=== PATIENT | female | born 1965 | race Caucasian/White ===

== ENCOUNTER 2019-06-13 07:35 | Inpatient (IN) | payer OTHER ==
[2019-06-09 14:41] VITALS: BMI 35.1
[2019-06-13] MEDS ORDERED: THROMBIN (BOVINE) 5,000 UNIT VIAL TP ONE ×3 (09:48→11:37)
[2019-06-13] MEDS ORDERED: BENZOIN/ALOE VERA/STORAX/TOLU 58 ML BOTTLE ONE (09:48)
[2019-06-13] MEDS ORDERED: HEPARIN NA (PORCINE) 5,000 UNITS/ML 1ML VIAL ONE (09:48)
[2019-06-13] MEDS ORDERED: fentaNYL CITRATE 250 MCG/5 ML VIAL ONE (09:59)
[2019-06-13] MEDS ORDERED: PROPOFOL 20 ML ONE ×20 (09:59→14:32)
[2019-06-13] MEDS ORDERED: MIDAZOLAM HCL 2 MG/2 ML SINGLE DOSE VIAL ONE ×2 (09:59)
[2019-06-13] MEDS ORDERED: BUPIVACAINE LIPOSOME/PF (EXPAREL) 266 MG/20 ML VIAL ONE (10:23)
[2019-06-13] MEDS ORDERED: ceFAZolin SODIUM 1 GM VIAL IVPB ONE ×2 (11:25→14:27)
[2019-06-13] MEDS ORDERED: VANCOMYCIN 1,000 MG VIAL (RESTRICTED TO ID ONLY) IVPB ONE (11:35)
[2019-06-13] MEDS ORDERED: GELATIN, ABSORBABLE 12-7MM EACH SPONGE TP ONE (11:37)
[2019-06-13] MEDS ORDERED: BUPIVACAINE HCL/PF 0.5% (5 MG/ML) 30 ML VIAL IJ ONE ×2 (12:50→14:40)
[2019-06-13] MEDS ORDERED: BUPIVACAINE LIPOSOME/PF (EXPAREL) 266 MG/20 ML VIAL NR ONE ×2 (12:50→14:40)
[2019-06-13] MEDS ORDERED: NEOSTIGMINE METHYLSULFATE 0.5 MG/1 ML - 10 ML MDV ONE (12:51)
--- NOTE | 2019-06-13 15:44 | PN ---
Progress Note (short form) - Note Progress Note: 54F s/p removal of hardware L4-L5, inspection of fusion mass, L3 laminectomy, L3 -L4 PLIF, L3-L5 posterior instrumented spinal fusion POD #0. -Admit to ICU post-op. -Pain control: NO NSAID's; patient received intra-op parspinal muscle block w/ Exparel; OK to use BILL OF MATERIALS CLERK if needed; transition to oral analgesia post-op. -DVT PPx: -Mechanical only: STEVENSON's, SCD's. -Chemical: None. -Incentive spirometry q15 min. -NPO until flatus. -[facility]; d/c when ambulating. -Post-op Ancef x 3 doses. -PT/OT/Rehab, OOB. -WBAT B/L LE. -No bending, lifting (>5 lbs), or twisting for 9-12 months. -Care per ICU & medical hospitalist teams. -Discharge planning: [facility]; call for appointment; . -Will follow. Mo Rangel MD (Orthopaedic Surgery).
[2019-06-13] MEDS ORDERED: DEXAMETHASONE SOD PHOSPHATE 4 MG/1 ML VIAL IVPUSH PRN (15:46)
[2019-06-13] MEDS ORDERED: ONDANSETRON 4 MG/2 ML VIAL IVPUSH PRN ×3 (15:46→15:52)
--- NOTE | 2019-06-13 15:46 | OP ---
Operative Note - Note: Operative Date: 06/13/19 Pre-Operative Diagnosis: 1. L3-L4 spondylolisthesis. 2. Adjacent level disease. 3. Lumbar spondylotic radiculopathy. 4. Spinal stenosis with neurogenic claudication Operation: 1. Removal of hardware L4-L5. 2. Inspection of fusion mass. 3. L3 laminectomy. 4. L3-L4 posterior lumbar interbody fusion (discectomy and arthrodesis). 5. L3-L4 insterior biomechanical device. 6. L3-L5 posterior instrumented spinal fusion. 7. Bone autograft. 8. Bone allograft. 9. Bone marrow aspiration Implants: Screws: 6 x 6.5x35mm. L3-L4 Cage: [id number] Post-Operative Diagnosis: Same as Pre-op Surgeon: Mo Rangel Punch Box Tender: Maximiliano Rangel Anesthesiologist/PRODUCE SPECIALIST: Veronica Vaughan MD Anesthesia: General Specimens Removed: Screws. L3-L4 disc Estimated Blood Loss (mls): 700 Blood Volume Replaced (mls): 250 (Cell Saver) Fluid Volume Replaced (mls): 2,000 (Crystalloid) Operative Report Dictated: Yes
[2019-06-13] MEDS ORDERED: LACTATED RINGERS SOLUTION 1,000 ML IV SCH ×2 (16:00)
[2019-06-13] MEDS ORDERED: HYDROmorphone *PCA* 10MG/50ML DISP.SYRIN PCA SCH (16:00)
[2019-06-13] MEDS ORDERED: diazePAM CARPU-JECT 10 MG/2 ML DISP.SYRIN ONE (16:55)
[2019-06-13] MEDS ORDERED: ACETAMINOPHEN INJECTION 100 ML IVPB ONE (16:55)
[2019-06-13] MEDS ORDERED: HYDROmorphone *PCA* 10MG/50ML DISP.SYRIN ONE (16:55)
[2019-06-13] MEDS: diazePAM CARPU-JECT 10 MG/2 ML DISP.SYRIN IVPUSH PRN (17:00)
[2019-06-13] MEDS: ACETAMINOPHEN 1000 MG/100 ML VIAL (NON FORMULARY) IVPB SCH (17:05)
[2019-06-13] MEDS ORDERED: ceFAZolin SODIUM 1 GM VIAL ONE ×2 (19:34→19:35)
[2019-06-13] MEDS: CEFAZOLIN 2 GM/D5W 2 GM/50 ML ML IVPB SCH (19:45)
[2019-06-13] MEDS ORDERED: ceFAZolin 2 GRAM PREMIX BAG IVPB SCH (20:00)
--- NOTE | 2019-06-13 20:56 | HP ---
CHIEF COMPLAINT: post-op PCP: HISTORY OF PRESENT ILLNESS: 54 y.o. F PMH HTN, asthma presenting post-op day #0 s/p removal L4-L5 hardware, inspection of fusion mass, L3 laminectomy, L3-L4 PLIF, L3-L5 posterior instrumental spinal fusion for L3-L4 spondylolisthesis, lumbar spondylotic radiculopathy & spinal stenosis with neurogenic claudication. Intra-operatively the patient received paraspinal exparel block. EBL 700cc, total 2.25L fluids total (250cc cell saver, 2L crystalloids). Will be admitted to ICU for post op monitoring. Recent Travel: PAST MEDICAL HISTORY: htn, asthma PAST SURGICAL HISTORY: prior spinal surgery L1-L2, hysterectomy, b/l laparoscopic knee surgeries Social History: Smoking: prior history, quit in 2014 Alcohol: socially Drugs: denies Allergies No Known Allergies Allergy (Verified 06/13/19 08:49) HOME MEDICATIONS: Home Medications Medication Instructions Recorded Chlorthalidone 25 mg PO DAILY 06/09/19 Fluticasone Propion/Salmeterol 1 each IH BID 06/09/19 [Wixela 500-50 Inhub] Garlic 1 each PO DAILY 06/13/19 Multivitamin [Poly-Vitamin] 1 each PO DAILY 06/13/19 REVIEW OF SYSTEMS CONSTITUTIONAL: Absent: fever, chills, diaphoresis, generalized weakness, malaise, loss of appetite, weight change HEENT: Absent: rhinorrhea, nasal congestion, throat pain, throat swelling, difficulty swallowing, mouth swelling, ear pain, eye pain, visual changes CARDIOVASCULAR: Absent: chest pain, syncope, palpitations, irregular heart rate, lightheadedness , peripheral edema RESPIRATORY: Absent: cough, shortness of breath, dyspnea with exertion, orthopnea, wheezing, stridor, hemoptysis GASTROINTESTINAL: Absent: abdominal pain, abdominal distension, nausea, vomiting, diarrhea, constipation, melena, hematochezia GENITOURINARY: Absent: dysuria, frequency, urgency, hesitancy, hematuria, flank pain, genital pain MUSCULOSKELETAL: Absent: myalgia, arthralgia, joint swelling, back pain, neck pain SKIN: Absent: rash, itching, pallor HEMATOLOGIC/IMMUNOLOGIC: Absent: easy bleeding, easy bruising, lymphadenopathy, frequent infections ENDOCRINE: Absent: unexplained weight gain, unexplained weight loss, heat intolerance, cold intolerance NEUROLOGIC: Absent: headache, focal weakness or paresthesias, dizziness, unsteady gait, seizure, mental status changes, bladder or bowel incontinence PSYCHIATRIC: Absent: anxiety, depression, suicidal or homicidal ideation, hallucinations. PHYSICAL EXAMINATION Vital Signs - 24 hr 06/13/19 06/13/19 06/13/19 08:35 08:44 08:45 Temperature 97.9 F 97.9 F Pulse Rate 83 83 Respiratory 20 20 Rate Blood Pressure 124/70 124/70 O2 Sat by Pulse 99 Oximetry (%) 06/13/19 06/13/19 06/13/19 16:00 16:15 16:30 Temperature Pulse Rate 89 94 H 104 H Respiratory 20 19 19 Rate Blood Pressure 114/77 133/68 140/81 O2 Sat by Pulse 95 90 L 100 Oximetry (%) 06/13/19 06/13/19 06/13/19 16:45 17:00 17:15 Temperature 25 F L Pulse Rate 103 H 101 H 88 Respiratory 19 16 Rate Blood Pressure 139/82 135/83 146/72 O2 Sat by Pulse 100 100 Oximetry (%) 06/13/19 06/13/19 06/13/19 17:30 17:45 18:00 Temperature Pulse Rate 106 H 104 H 89 Respiratory 21 H 12 12 Rate Blood Pressure 150/92 120/71 129/70 O2 Sat by Pulse 100 100 100 Oximetry (%) 06/13/19 06/13/19 06/13/19 18:15 18:30 18:45 Temperature Pulse Rate 87 88 103 H Respiratory 20 18 16 Rate Blood Pressure 121/69 123/68 106/74 O2 Sat by Pulse 100 100 97 Oximetry (%) 06/13/19 06/13/19 06/13/19 19:00 19:15 19:30 Temperature Pulse Rate 99 H 82 84 Respiratory 17 13 14 Rate Blood Pressure 116/55 L 110/84 104/53 L O2 Sat by Pulse 97 99 100 Oximetry (%) 06/13/19 06/13/19 06/13/19 19:45 20:00 20:21 Temperature 98.4 F 98.4 F Pulse Rate 94 H 95 H Respiratory 14 12 Rate Blood Pressure 93/53 L 99/69 O2 Sat by Pulse 100 100 99 Oximetry (%) 06/13/19 20:24 Temperature 97.8 F Pulse Rate 85 Respiratory 15 Rate Blood Pressure 132/82 O2 Sat by Pulse Oximetry (%) GENERAL: Awake, alert, and fully oriented, in no acute distress. HEENT: NCAT. NC in place. PERRLA. Sclera non-icteric LUNGS: Breath sounds equal, clear to auscultation bilaterally. No wheezes, and no crackles. No accessory muscle use. HEART: Regular rate and rhythm, normal S1 and S2 without murmur, rub or gallop. ABDOMEN: Soft, nontender, not distended, normoactive bowel sounds, no guarding. EXTREMITIES: 2+ pulses, warm, well-perfused. No peripheral edema. NEUROLOGICAL: Cranial nerves II-XII intact. Sensory intact b/l UE & LE. Able to lift b/l LE off bed, able to bend @ b/l knee, wiggles toes b/l. Good handgrip strength. Full ROM UE's. PSYCHIATRIC: Cooperative. Good eye contact. Appropriate mood and affect. SKIN: Warm, dry, normal turgor, no rashes or lesions noted, normal capillary refill. Laboratory Results - last 24 hr 06/13/19 06/13/19 07:51 10:45 Blood Type O POSITIVE O POSITIVE Antibody Screen Negative ASSESSMENT/PLAN: 54 y.o. F PMH HTN, asthma presenting POD #0 s/p removal L4-L5 hardware, inspection of fusion mass, L3 laminectomy, L3-L4 PLIF, L3-L5 posterior instrumental spinal fusion w/ Dr. Rangel. #Pain control -s/p exparel block intra operatively -Dilaudid FILM CUTTER pump -IV tylenol 1g q8h x3 doses -avoid NSAIDs -transition to PO analgesics when able -weight bearing as tolerated b/l LE #HTN -continue home chlorthalidone 25 mg daily -monitor vitals closely #Asthma -incentive spirometer q15min -continue home symbicort -on NC @3L can wean as tolerated, maintain SaO2 >90% #PPX -abx: post- op 3 x doses ancef given, 1g vanc, -DVT: SCDs, avoid chemical AC post-operatively -OOBTC -zofran prn for nausea #FENLTD -received 2.25L total intra-op (250cc cell saver, 2L crystalloids) -LR @125cc/hr -trend lytes replete prn -NPO until passing flatus -perez in place, can d/c Surgical recs: No bending, lifting (>5 lbs), or twisting for 9-12 months. Visit type - Emergency Visit Emergency Visit: Yes ED Registration Date: 06/13/19 Care time: The patient presented to the Emergency Department on the above date and was hospitalized for further evaluation of their emergent condition. - New Patient This patient is new to me today: Yes Date on this admission: 06/14/19 - Critical Care Critical Care patient: No ATTENDING PHYSICIAN STATEMENT I saw and evaluated the patient. I reviewed the resident's note and discussed the case with the resident. I agree with the resident's findings and plan as documented. SUBJECTIVE: OBJECTIVE: ASSESSMENT AND PLAN:
[2019-06-13] MEDS: BUDESONIDE/FORMETEROL FUMARATE 160/4.5 mcg INHALER IH SCH (21:49)
[2019-06-13] MEDS ORDERED: PATIENT'S OWN MEDICATION (NON-FORMULARY) (Fluticasone Propion/Salmeterol [Wixela 500-50 In IH SCH (22:00)
--- NOTE | 2019-06-13 22:10 | CONSULT ---
Consultation: REQUESTING PROVIDER: Dr. Rangel CONSULT REQUEST: We have been asked to medically evaluate this patient for Post op care in the ICU. HISTORY OF PRESENT ILLNESS: 54 yo f w/ PMH HTN, asthma who is POD #0 removal L4-L5 hardware, inspection of fusion mass, L3 laminectomy, L3-L4 PLIF, L3-L5 posterior instrumental spinal fusion for L3-L4 spondylolisthesis with Dr. Rangel. Patient was admitted to ICU for post op monitoring. On interview, the patient is well appearing and comfortable, states her pain in 810. HAT COPYIST in place. No other complaints. REVIEW OF SYSTEMS: CONSTITUTIONAL: Absent: fever, chills, diaphoresis, generalized weakness, malaise, loss of appetite, weight change HEENT: Absent: rhinorrhea, nasal congestion, throat pain, throat swelling, difficulty swallowing, mouth swelling, ear pain, eye pain, visual changes CARDIOVASCULAR: Absent: chest pain, syncope, palpitations, irregular heart rate, lightheadedness , peripheral edema RESPIRATORY: Absent: cough, shortness of breath, dyspnea with exertion, orthopnea, wheezing, stridor, hemoptysis GASTROINTESTINAL: Absent: abdominal pain, abdominal distension, nausea, vomiting, diarrhea, constipation, melena, hematochezia GENITOURINARY: Absent: dysuria, frequency, urgency, hesitancy, hematuria, flank pain, genital pain MUSCULOSKELETAL: Absent: myalgia, arthralgia, joint swelling SKIN: Absent: rash, itching, pallor HEMATOLOGIC/IMMUNOLOGIC: Absent: easy bleeding, easy bruising, lymphadenopathy, frequent infections ENDOCRINE: Absent: unexplained weight gain, unexplained weight loss, heat intolerance, cold intolerance NEUROLOGIC: Absent: headache, focal weakness or paresthesias, dizziness, unsteady gait, seizure, mental status changes, bladder or bowel incontinence PSYCHIATRIC: Absent: anxiety, depression, suicidal or homicidal ideation, hallucinations. PHYSICAL EXAMINATION Vital Signs - 24 hr 06/13/19 06/13/19 06/13/19 08:35 08:44 08:45 Temperature 97.9 F 97.9 F Pulse Rate 83 83 Respiratory 20 20 Rate Blood Pressure 124/70 124/70 O2 Sat by Pulse 99 Oximetry (%) 06/13/19 06/13/19 06/13/19 15:48 16:00 16:15 Temperature 97.4 F L Pulse Rate 90 89 94 H Respiratory 21 H 20 19 Rate Blood Pressure 110/73 114/77 133/68 O2 Sat by Pulse 94 L 95 90 L Oximetry (%) 06/13/19 06/13/19 06/13/19 16:30 16:45 17:00 Temperature 25 F L Pulse Rate 104 H 103 H 101 H Respiratory 19 19 Rate Blood Pressure 140/81 139/82 135/83 O2 Sat by Pulse 100 100 Oximetry (%) 06/13/19 06/13/19 06/13/19 17:15 17:30 17:45 Temperature Pulse Rate 88 106 H 104 H Respiratory 16 21 H 12 Rate Blood Pressure 146/72 150/92 120/71 O2 Sat by Pulse 100 100 100 Oximetry (%) 06/13/19 06/13/19 06/13/19 18:00 18:15 18:30 Temperature Pulse Rate 89 87 88 Respiratory 12 20 18 Rate Blood Pressure 129/70 121/69 123/68 O2 Sat by Pulse 100 100 100 Oximetry (%) 06/13/19 06/13/19 06/13/19 18:45 19:00 19:15 Temperature Pulse Rate 103 H 99 H 82 Respiratory 16 17 13 Rate Blood Pressure 106/74 116/55 L 110/84 O2 Sat by Pulse 97 97 99 Oximetry (%) 06/13/19 06/13/19 06/13/19 19:30 19:45 20:00 Temperature 98.4 F 98.4 F Pulse Rate 84 94 H 95 H Respiratory 14 14 12 Rate Blood Pressure 104/53 L 93/53 L 99/69 O2 Sat by Pulse 100 100 100 Oximetry (%) 06/13/19 06/13/19 20:21 20:24 Temperature 97.8 F Pulse Rate 85 Respiratory 15 Rate Blood Pressure 132/82 O2 Sat by Pulse 99 Oximetry (%) GENERAL: Drowsy, easily rousable to voice. able to follow commands. HEAD: Normal with no signs of trauma. LUNGS: Breath sounds equal, clear to auscultation bilaterally. No wheezes, and no crackles. No accessory muscle use. HEART: Regular rate and rhythm, normal S1 and S2 without murmur, rub or gallop. ABDOMEN: Soft, nontender, not distended, normoactive bowel sounds, no guarding, no rebound, no masses. No hepatomegaly or splenomegaly. LOWER EXTREMITIES: 2+ pulses, warm, well-perfused. No calf tenderness. No peripheral edema. NEUROLOGICAL: Cranial nerves II-X intact. moving all 4 limbs spontaneously SKIN: Warm, dry, normal turgor, no rashes or lesions noted. Laboratory Results - last 24 hr 06/13/19 06/13/19 07:51 10:45 Blood Type O POSITIVE O POSITIVE Antibody Screen Negative Active Medications Generic Name Dose Route Start Last Admin Trade Name Freq PRN Reason Stop Dose Admin Acetaminophen 1,000 mg 06/13/19 16:00 06/13/19 17:05 Ofirmev Injection - IVPB 06/14/19 08:01 1,000 mg Q8H AMANDO Administration Budesonide/Formoterol Fumarate 2 puff 06/13/19 22:00 06/13/19 21:49 Symbicort 160/4.5mcg - IH 2 puff BID AMANDO Administration Chlorthalidone 25 mg 06/14/19 10:00 Hygroton - PO DAILY AMANDO Dexamethasone Sodium Phosphate 4 mg 06/13/19 15:46 Decadron Injection - IVPUSH ONCE PRN NAUSEA AND/OR VOMITING Diazepam 5 mg 06/13/19 15:52 06/13/19 17:00 Valium Injection - IVPUSH 5 mg Q8H PRN Administration BACK PAIN Diphenhydramine HCl 12.5 mg 06/13/19 15:46 Benadryl Injection - IVPUSH ONCE PRN FOR ITCHING Fentanyl 50 mcg 06/13/19 15:46 Sublimaze Injection - IVPUSH [id number] PRN PAIN-PACU ORDER X 4 DOSES ONLY Hydromorphone HCl 10 mg 06/13/19 16:00 06/13/19 17:37 Hydromorphone 10 Mg/50 Ml-Ns HAT COPYIST 06/14/19 15:59 10 mg HAT COPYIST AMANDO Administration Protocol Lactated Ringer's 1,000 mls @ 125 mls/hr 06/13/19 16:00 06/13/19 17:37 Lactated Ringers Solution IV 315 mls ASDIR AMANDO Administration Cefazolin Sodium/Dextrose 2 gm in 50 mls @ 100 mls/hr 06/13/19 20:00 19:45 Ancef 2 Gm Premixed Ivpb - IVPB 06/14/19 08:29 50 mls Q6H AMANDO Administration Ondansetron HCl 4 mg 06/13/19 15:52 Zofran Injection IVPUSH Q6H PRN NAUSEA AND/OR VOMITING ASSESSMENT/PLAN: 54 yo f w/ PMH HTN, asthma who is POD #0 removal L4-L5 hardware, inspection of fusion mass, L3 laminectomy, L3-L4 PLIF, L3-L5 posterior instrumental spinal fusion for L3-L4 spondylolisthesis with Dr. Rangel. Patient was admitted to ICU for post op monitoring. #Neuro -drowsy but easily rousable to voice. likely 2/2 dilaudid HAT COPYIST -moving all 4 limbs spontaneously -pain Ctrl w/ intra op paraspinal block, HAT COPYIST per anaesthesia. -NO NSAIDS per Dr. Rangel -OOB, PT #Urinary -d/c perez once OOB/ambulating #ID -post op ancef x3 doses #GI -NPO until flatus #Prophy -mechanical DVT prophy w/ SCDs per Dr. Rangel Dispo: We will continue to follow the patient. Thank you for this consultative opportunity. Visit type - Emergency Visit Emergency Visit: No - New Patient This patient is new to me today: Yes Date on this admission: 06/13/19 - Critical Care Critical Care patient: Yes Total Critical Care Time (in minutes): 40 Critical Care Statement: The care of this patient involved high complexity decision making to prevent further life threatening deterioration of the patient 's condition and/or to evaluate & treat vital organ system(s) failure or risk of failure. ATTENDING PHYSICIAN STATEMENT I saw and evaluated the patient. I reviewed the resident's note and discussed the case with the resident. I agree with the resident's findings and plan as documented. SUBJECTIVE: OBJECTIVE: ASSESSMENT AND PLAN:
--- NOTE | 2019-06-13 23:51 | PN ---
Teaching Attending Note Name of Resident: Mimi Ramsey ATTENDING PHYSICIAN STATEMENT I saw and evaluated the patient. I reviewed the resident's note and discussed the case with the resident. I agree with the resident's findings and plan as documented. 54-year-old woman with history of hypertension, asthma postop day 0 status post removal of L4-L5 hardware, inspection of fusion mass, L3 laminectomy, L3-L4 posterior lumbar interbody fusion (discectomy and arthrodesis). L3-L4 inferior biomechanical device. L3-L5 posterior instrumented spinal fusion. Bone autograft. Bone allograft. Bone marrow aspiration. Patient is doing well postop. On physical exam patient was drowsy, not in any visible distress, mentating well, soft abdomen, bowel sounds present. SCDs were in place, moving all extremities. Bilateral breath sounds appreciated. on Dilaudid UPHOLSTERY RESTORER pump for pain management. She is not complaining of any pain. We will monitor vital signs closely, control pain, give incentives spirometry. Give IV fluid hydration, n.p.o. until flatulence. Mechanical DVT prophylaxis with SCDs. Postop Ancef x3 doses perioperatively. Maintain Moses catheter for now and will DC when ambulating. No bending, lifting more than 5 pounds or twisting for 9 to 12 months. Orthopedic surgery follow-up.
[2019-06-14] MEDS: ACETAMINOPHEN 1000 MG/100 ML VIAL (NON FORMULARY) IVPB SCH ×2 (00:52→08:46)
[2019-06-14] MEDS: diazePAM CARPU-JECT 10 MG/2 ML DISP.SYRIN IVPUSH PRN (00:52)
[2019-06-14] MEDS: CEFAZOLIN 2 GM/D5W 2 GM/50 ML ML IVPB SCH ×2 (01:07→08:44)
[2019-06-14 07:44] LABS: HEMATOCRIT 31.1 % (32.4-45.2); HEMOGLOBIN 10.2 GM/dL (10.7-15.3); MCH 26.1 pg (25.7-33.7); MCHC 32.7 g/dl (32.0-36.0); MEAN CELL VOLUME 79.9 fl (80-96); MEAN PLT VOLUME 8.2 fl (7.5-11.1); PLATELET COUNT 242 K/MM3 (134-434); RBC 3.89 M/mm3 (3.60-5.2); RDW 16.5 % (11.6-15.6)
[2019-06-14 07:50] LABS: CALCIUM 8.5 mg/dL (8.5-10.1); CREATININE 1.3 mg/dL (0.55-1.3); PHOSPHOROUS 4.9 mg/dL (2.5-4.9); POTASSIUM 3.4 mmol/L (3.5-5.1)
[2019-06-14] MEDS ORDERED: POTASSIUM CHLORIDE 20 MEQ PREMIX IVPB 100 ML IVPB ONE (07:54)
[2019-06-14] MEDS ORDERED: KCL 10 MEQ IVPB 10 MEQ/100 ML INFUS.BAG IVPB SCH (08:15)
[2019-06-14] MEDS ORDERED: CHLORTHALIDONE 25 MG TABLET PO SCH (10:00)
[2019-06-14] MEDS: BUDESONIDE/FORMETEROL FUMARATE 160/4.5 mcg INHALER IH SCH (10:33)
[2019-06-14] MEDS ORDERED: DOCUSATE SODIUM 100 MG CAPSULE (FP) PO PRN (12:21)
[2019-06-14] MEDS ORDERED: oxyCODONE HCL 5 MG TABLET PO PRN (12:21)
--- NOTE | 2019-06-14 12:42 | OP ---
DATE OF OPERATION: DATE OF DICTATION: 06/13/2019 SURGEON: Mo Rangel MD SECTION MAINTAINER: Maximiliano Rangel MD PREOPERATIVE DIAGNOSIS: Adjacent level spinal stenosis with significant instability and spondylolisthesis L3-4, original L4-5 fusion. POSTOPERATIVE DIAGNOSIS: Adjacent level spinal stenosis with significant instability and spondylolisthesis L3-4, original L4-5 fusion. OPERATION PERFORMED: 1. Removal of hardware. 2. Inspection of fusion mass. 3. Laminectomy L3 and partial laminectomy L4. 4. Facetectomy left L3-4, facetectomy, right L3-4. 5. Diskectomy with posterior lumbar interbody fusion and cage and bone graft. 6. Insertion of cage 40 link. 7. Pedicle screw instrumentation L3, 4, 5. 8. Posterolateral arthrodesis L3, 4, 5. 9. Use of bone mass with concentrate and allograft music copyist. 10. Use of autograft harvested from the same wound. 11. Complex wound closure 20 cm. ANESTHESIA: General. ANTIBIOTICS GIVEN: Kefzol 2 g and 1 g vancomycin. One g Kefzol at the time of seating of the instrumentation. DESCRIPTION OF THE PROCEDURE: Patient was correctly identified and brought to the operating room. Lumbar spine was prepped and draped in the routine manner. He was placed on the Alex table bony points padded. Timeout was called. Anesthesia given appropriately. The skin was prepped with Betadine scrub solution, wiped off with alcohol, DuraPrep applied. Appropriate window draping performed. Midline incision extended proximally. Dissection was taken through the skin and subcutaneous tissue, brought down to the tip of the transverse process of L2. The lamina of L3 and the lamina of L2 were exposed. The dissection was taken right out to the hardware. This was performed obliquely and laterally so that the hardware was exposed using cautery. The soft tissue was dissected off the hardware, exposing the entire lateral surface of the original bone graft site combined with extending all the way up to the transverse process of L3 on both the left and right hand side. The intertransverse plane was packed with sponges. Once this had been performed, the hardware of L4-5 was removed. This was DePuy hardware. No complications with removal of the hardware. The infusion mass was inspected, found to be completely solid at L4-5. Once this had been completed, the laminectomy of L3 was performed. This was very difficult because of the scar tissue from the previous surgery. Using curettes, we worked our way to the undersurface of the lamina and then the ligamentum flavum off the bone enabling easy resection of the L3 lamina and because of the stenosis seen at L2-3 level, but no instability at L2-3, I extended the partial laminectomy of L2 as well. Once this had been performed, the facets of both left and right hand side were dealt with by using osteotomes to resect the inferior facet of both the left and right hand side and then with great difficulty because of the stuck down dura, which required extensive resection of fibrous tissue in the epidural space, the superior facet overhang; namely the recess at L3-4, was resected appropriately. Once we had completed this, the theca was completely freed. All nerve roots were visualized appropriately; that is the L3-4 nerve roots at that level. We did not extend the decompression to L4-5 because it was unnecessary as noted by the MRI that was available. The theca was then retracted from right to left. Epidural veins were dealt with appropriately. The disk at L3-4 was clearly identified. An annulotomy was performed with an 11 blade. Cecilio were placed into the disk space. Shaving was right down to No. 10. A 10 enabled the shaver to be seated snuggly. As each sequential shaving brought about removal of all the disk material so that at the end of the procedure the endplates, that is the cranial endplate of 4 and the caudal endplate of L3, were palpated with a serrated curette. All remaining soft tissue was removed off the bone bed and the actual interbody space was packed with cancellous bone. This was the bone that was removed with the Midas Cezar removal , that bone being harvested from the lamina that was resected. Once the cage was inserted, the thoracodorsal fascia was opened gently and a Jamshidi needle placed into the cancellous bed of the ilium; 60 mL of marrow was aspirated for appropriate BMAC CD34 spin. This gave a coat of about no more than 3 mL. This was mixed with Fibrillar allograft bone that was loosened and expanded with Ringer lactate and then the PRP element of the actual BMAC harvest, then this mixed with the stem cells appropriately. The remaining bone that was from the lamina resection was mixed into the actual graft as well bringing about a slurry of bone, combination of BMAC cells combined with Fibrillar allograft, as well as autograft. This was placed into the intertransverse plane at L3-4. However, prior to placement of the bone graft, the pedicles of L4 and 5 screws were reinserted. Initially screws were inserted 6.5 x 35 mm screws at each level. At L4 on the right hand side we redirected the screws as it was felt that one screw had perforated laterally and this was redirected appropriately. The pedicles of L3 were then identified using Leksell rongeurs and the 4.5 drill bit utilizing anatomical guidelines, as well as lateral fluoroscopic x-ray. The pedicles were drilled with the 4.5 drill, palpated with a ball-tip feeler. Each screw measured 35 x 6.5 screws. All screws were tested and found to be well above the neural foramen concern level of 10. In fact all screws were at above level of 20, except in the right L4, which was at 14. The rods were contoured to seat themselves into tulips of the pedicle screws, the caps tightened and the torque device utilized to tighten them completely. This was bent through some of the lumbar lordosis. The wounds were thoroughly lavaged. X-rays AP and lateral revealed excellent seating of the screws without any complication. Thorough lavage was performed. The bone graft was solidly packed into place as outlined above so that this was a liberal L3, 4, 5 intertransverse plane bone grafting and pedicle screw instrumentation combined with a PLIF and cage at L3-4. The muscle was inspected. Fibrillar muscle was resected. The layers were closed in a complex wound closure fashion. Muscle 1 Vicryl, fascia 1 Vicryl, subcutaneous 1 and 2-0 Vicryl and skin 3-0 Monocryl and Steri-Strips. This thus was a 5-layered closure, a thick woman. OVERALL COMMENT: Operation went extremely well. Very difficult because of the size, that is the obesity, combined with her short stature. This was a challenging problem and all went well. Patient will be nursed in the ICU. MD MELISSA Augustin/[id number]
[2019-06-14] MEDS: KCL 10 MEQ IVPB 10 MEQ/100 ML INFUS.BAG IVPB SCH ×2 (12:46→14:18)
--- NOTE | 2019-06-14 13:23 | PN ---
Teaching Attending Note Name of Resident: Rachael Block ATTENDING PHYSICIAN STATEMENT I saw and evaluated the patient. I reviewed the resident's note and discussed the case with the resident. I agree with the resident's findings and plan as documented. SUBJECTIVE: Patient seen and examined in the ICU. Awake and alert. Still with weakness and neuropathy in her LE: Right > Left. No CP or SOB. No acute events overnight. Intake & Output 06/11/19 06/12/19 06/13/19 06/14/19 23:59 23:59 23:59 23:59 Intake Total 2815 1350 Output Total 1380 600 Balance 1435 750 Last Vital Signs Temp Pulse Resp BP Pulse Ox 97.8 F 87 21 H 120/62 94 L 06/14/19 10:00 06/14/19 10:00 06/14/19 09:00 06/14/19 10:00 06/14/19 09:00 Active Medications Budesonide/Formoterol Fumarate (Symbicort 160/4.5mcg -) 2 puff IH BID [facility] Last Admin: 06/14/19 10:33 Dose: 2 puff Chlorthalidone (Hygroton -) 25 mg PO DAILY [facility] Last Admin: 06/14/19 10:30 Dose: Not Given Dexamethasone Sodium Phosphate (Decadron Injection -) 4 mg IVPUSH ONCE PRN PRN Reason: NAUSEA AND/OR VOMITING Diazepam (Valium Injection -) 5 mg IVPUSH Q8H PRN PRN Reason: BACK PAIN Last Admin: 06/14/19 00:52 Dose: 5 mg Diphenhydramine HCl (Benadryl Injection -) 12.5 mg IVPUSH ONCE PRN PRN Reason: FOR ITCHING Docusate Sodium (Colace -) 100 mg PO BID PRN PRN Reason: CONSTIPATION Fentanyl (Sublimaze Injection -) 50 mcg IVPUSH [id number] PRN PRN Reason: PAIN-PACU ORDER X 4 DOSES ONLY Hydromorphone HCl (Hydromorphone 10 Mg/50 Ml-Ns) 10 mg 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 [facility]; Protocol Stop: 06/14/19 15:59 Last Admin: 06/13/19 17:37 Dose: 10 mg Lactated Ringer's (Lactated Ringers Solution) 1,000 mls @ 125 mls/hr IV ASDIR [facility] Last Admin: 06/13/19 17:37 Dose: 315 mls Potassium Chloride (Potassium Chloride 10 Meq Premix Ivpb -) 10 meq in 100 mls @ 100 mls/hr IVPB Q60M [facility] Stop: 06/14/19 14:44 Last Admin: 06/14/19 12:46 Dose: 100 mls/hr Ondansetron HCl (Zofran Injection) 4 mg IVPUSH Q6H PRN PRN Reason: NAUSEA AND/OR VOMITING Last Admin: 06/14/19 00:43 Dose: 4 mg GENERAL: Awake and alert, mildly uncomfortable due to pain HEAD: Normal with no signs of trauma. LUNGS: Breath sounds equal, clear to auscultation bilaterally. No wheezes, and no crackles. No accessory muscle use. HEART: Regular rate and rhythm, normal S1 and S2 without murmur, rub or gallop. ABDOMEN: Soft, nontender, not distended, normoactive bowel sounds, no guarding, no rebound, no masses. No hepatomegaly or splenomegaly. LOWER EXTREMITIES: 2+ pulses, warm, well-perfused. No calf tenderness. No peripheral edema. NEUROLOGICAL: Decreased sensation and motor RLE 4/5 SKIN: Warm, dry, normal turgor, no rashes or lesions noted. Laboratory Results - last 24 hr 06/14/19 06/14/19 05:52 05:52 WBC 12.0 H RBC 3.89 Hgb 10.2 L Hct 31.1 L MCV 79.9 L MCH 26.1 MCHC 32.7 RDW 16.5 H Plt Count 242 MPV 8.2 Sodium 139 Potassium 3.4 L Chloride 104 Carbon Dioxide 29 Anion Gap 6 L BUN 13.0 Creatinine 1.3 Est GFR (CKD-EPI)AfAm 53.48 Est GFR (CKD-EPI)NonAf 46.15 Random Glucose 96 Calcium 8.5 Phosphorus 4.9 Magnesium 2.0 ASSESSMENT/PLAN: POD #1: Removal L4-L5 hardware, inspection of fusion mass, L3 laminectomy, L3- L4 PLIF, L3-L5 posterior instrumental spinal fusion for L3-L4 spondylolisthesis. Asthma: Mild Persistent HTN Pain control O2 Supplementation as needed Incentive Spirometry PT / activity per surgery No NSAIDS DC perez once OOB Post op ancef x3 doses PO as tolerated Mechanical VTE prophylaxis Floor when cleared by surgery Dr Cat
[2019-06-14] MEDS ORDERED: ALBUTEROL SO4 0.083% IH SOL 2.5 MG/3 ML VIAL.NEB. NEB PRN ×2 (13:41→17:36)
--- NOTE | 2019-06-14 13:43 | PN ---
Physical Exam: SUBJECTIVE: Patient seen and examined at the bedside. Noted that she was feeling better but still continued to have some pain mostly in her R leg which she said was chronic. Had some post-surgical back pain. Endorsed R leg numbness/ tingling which is chronic and unchanged since the surgery. Denied cp, sob, abd pain, n/v/c/d, headaches, dizziness, lightheadedness. OBJECTIVE: Vital Signs Period Temp Pulse Resp BP Sys/Chun Pulse Ox Last 24 Hr 25 F-98.4 F 79-108 12-21 93-150/53-92 90-100 GENERAL: The patient is awake, alert, and fully oriented, in no acute distress. HEAD: Normal with no signs of trauma. EYES: PERRL, extraocular movements intact, sclera anicteric, conjunctiva clear. ENT: Oropharynx clear without exudates, moist mucous membranes. LUNGS: Breath sounds equal, clear to auscultation bilaterally, no wheezes, no crackles, no accessory muscle use. HEART: Regular rate and rhythm, S1, S2 without murmur, rub. ABDOMEN: Soft, obese, nontender, nondistended, normoactive bowel sounds, no guarding, no rebound, no masses. EXTREMITIES: 2+ pulses, warm, well-perfused, no edema. NEUROLOGICAL: Cranial nerves II through XII grossly intact. Lower extremities with decreased strength likely secondary to pain. 4/5 on the RLE more distally. Decreased sensation to gross touch on the R leg not in any dermatomal pattern. PSYCH: Normal mood, normal affect. SKIN: Warm, dry, normal turgor, no rashes or lesions noted. Laboratory Results - last 24 hr 06/14/19 06/14/19 05:52 05:52 WBC 12.0 H RBC 3.89 Hgb 10.2 L Hct 31.1 L MCV 79.9 L MCH 26.1 MCHC 32.7 RDW 16.5 H Plt Count 242 MPV 8.2 Sodium 139 Potassium 3.4 L Chloride 104 Carbon Dioxide 29 Anion Gap 6 L BUN 13.0 Creatinine 1.3 Est GFR (CKD-EPI)AfAm 53.48 Est GFR (CKD-EPI)NonAf 46.15 Random Glucose 96 Calcium 8.5 Phosphorus 4.9 Magnesium 2.0 Active Medications Generic Name Dose Route Start Last Admin Trade Name Freq PRN Reason Stop Dose Admin Budesonide/Formoterol Fumarate 2 puff 06/13/19 22:00 06/14/19 10:33 Symbicort 160/4.5mcg - IH 2 puff BID [facility] Administration Chlorthalidone 25 mg 06/14/19 10:00 06/14/19 10:30 Hygroton - PO Not Given DAILY [facility] Dexamethasone Sodium Phosphate 4 mg 06/13/19 15:46 Decadron Injection - IVPUSH ONCE PRN NAUSEA AND/OR VOMITING Diazepam 5 mg 06/13/19 15:52 06/14/19 00:52 Valium Injection - IVPUSH 5 mg Q8H PRN Administration BACK PAIN Diphenhydramine HCl 12.5 mg 06/13/19 15:46 Benadryl Injection - IVPUSH ONCE PRN FOR ITCHING Docusate Sodium 100 mg 06/14/19 12:21 Colace - PO BID PRN CONSTIPATION Fentanyl 50 mcg 06/13/19 15:46 Sublimaze Injection - IVPUSH [id number] PRN PAIN-PACU ORDER X 4 DOSES ONLY Hydromorphone HCl 10 mg 06/13/19 16:00 06/13/19 17:37 Hydromorphone 10 Mg/50 Ml-Ns [employer] 06/14/19 15:59 10 mg TR[employer] ESTATES PARALEGAL [facility] Administration Protocol Lactated Ringer's 1,000 mls @ 125 mls/hr 06/13/19 16:00 06/13/19 17:37 Lactated Ringers Solution IV 315 mls ASDIR [facility] Administration Potassium Chloride 10 meq in 100 mls @ 100 mls/hr 06/14/19 12:45 06/14/19 12: 46 Potassium Chloride 10 Meq Premix Ivpb - IVPB 06/14/19 14:44 100 mls/hr Q60M [facility] Administration Ondansetron HCl 4 mg 06/13/19 15:52 06/14/19 00:43 Zofran Injection IVPUSH 4 mg Q6H PRN Administration NAUSEA AND/OR VOMITING ASSESSMENT/PLAN: Elizabeth Castaneda is a 54 year old female with a past medical history of HTN, asthma presenting POD #1 s/p removal L4-L5 hardware, inspection of fusion mass, L3 laminectomy, L3-L4 PLIF, L3-L5 posterior instrumental spinal fusion w/ Dr. Rangel. S/p laminectomy and spinal fusin - s/p exparel block intra operatively - Dilaudid [employer]GAL pump, non continuous, can transition to oral pain meds as pain become better contolled - IV tylenol 1g q8h x3 doses - avoid NSAIDs - weight bearing as tolerated b/l LE - further recommendations as per surgery and anesthesia - abx: post- op 3 x doses ancef given, 1g vanc - OOB as tolerated - perez d/c'd when ambulating - Surgical recs: No bending, lifting (>5 lbs), or twisting for 9-12 months HTN - hold home chlorthalidone 25 mg daily while patient on fluids - blood pressure well controlled, continue to monitor and restart home meds as clinically appropriate Asthma - incentive spirometer q15min - on NC @3L can wean as tolerated, maintain SaO2 >90% - ventolin prn PPX - DVT: SCDs, avoid chemical AC post-operatively FEN - LR @125cc/hr - continue to monitor electrolytes and replete as necessary, hypokalemia noted and repleted - clear liquid diet Dispo - continue to monitor in ICU and transition to floors when cleared by surgery Visit type - Emergency Visit Emergency Visit: Yes ED Registration Date: 06/13/19 Care time: The patient presented to the Emergency Department on the above date and was hospitalized for further evaluation of their emergent condition. - New Patient This patient is new to me today: Yes Date on this admission: 06/14/19 - Critical Care Critical Care patient: Yes Total Critical Care Time (in minutes): 35 Critical Care Statement: The care of this patient involved high complexity decision making to prevent further life threatening deterioration of the patient 's condition and/or to evaluate & treat vital organ system(s) failure or risk of failure.
--- NOTE | 2019-06-14 15:05 | PN ---
Teaching Attending Note Name of Resident: Edmund Carreon ATTENDING PHYSICIAN STATEMENT I saw and evaluated the patient. I reviewed the resident's note and discussed the case with the resident. I agree with the resident's findings and plan as documented. SUBJECTIVE: seen at 10 am No fever or chills . lower back pain is controlled with dilaudid. no flatus yet. R LE pain and numbness. OBJECTIVE: NAD, awake, cooperative. MMM. no JVD Cv: RRR, no MRG Lungs: CTAB Abd: soft, NT, ND, NL BS. Ext: No edema or erythema. Neuro of LE: Strength. R LE: hip flexion 2/5 limited due to pain. knee flexion /extension 5/5 . ankle dorsiflexion /plantar flexion 5/5 LLE: hip flexion 3/5 limited due to pain. knee flexion /extension 5/5 . ankle dorsiflexion /plantar flexion 5/5 knee jerk 1+ b/l . decreased sensation to light touch in RLE compared to L ASSESSMENT AND PLAN: 54 y/oo lady with h/o Asthma, HTN, and chronic back pain s/p a previous procedure who is now s/p another procedure. 1- POD day 1 after lumbar spine sx 2- h/o HTN 3- h/o Asthma. 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 - perez out - leukocytosis is likely due to steroids given during OR - PT eval - inhalers - SCDs. - heparin per surgery - replete K - clears
--- NOTE | 2019-06-14 15:13 | PN ---
Physical Exam: SUBJECTIVE: Patient seen and examined. No acute events overnight. Pain is tolerated. Pt passing flatus. Reports tingling sensation in RLE (unchanged from prior to surgery). OBJECTIVE: Vital Signs Period Temp Pulse Resp BP Sys/Chun Pulse Ox Last 24 Hr 25 F-98.4 F 79-108 12-21 93-150/53-92 90-100 GENERAL: The patient is awake, alert, and fully oriented, in no acute distress. HEAD: Normal with no signs of trauma. EYES: PERRL, extraocular movements intact, sclera anicteric, conjunctiva clear. No ptosis. ENT: Ears normal, nares patent, oropharynx clear without exudates, moist mucous membranes. NECK: Trachea midline, full range of motion, supple. LUNGS: Breath sounds equal, clear to auscultation bilaterally, no wheezes, no crackles, no accessory muscle use. HEART: Regular rate and rhythm, S1, S2 without murmur, rub or gallop. ABDOMEN: Soft, nontender, nondistended, normoactive bowel sounds, no guarding, no rebound, no hepatosplenomegaly, no masses. EXTREMITIES: 2+ pulses, warm, well-perfused, no edema. NEUROLOGICAL: Cranial nerves II through XII grossly intact. Decreased strength and sensation in RLE. PSYCH: Normal mood, normal affect. SKIN: Warm, dry, normal turgor, no rashes or lesions noted Laboratory Results - last 24 hr 06/14/19 06/14/19 05:52 05:52 WBC 12.0 H RBC 3.89 Hgb 10.2 L Hct 31.1 L MCV 79.9 L MCH 26.1 MCHC 32.7 RDW 16.5 H Plt Count 242 MPV 8.2 Sodium 139 Potassium 3.4 L Chloride 104 Carbon Dioxide 29 Anion Gap 6 L BUN 13.0 Creatinine 1.3 Est GFR (CKD-EPI)AfAm 53.48 Est GFR (CKD-EPI)NonAf 46.15 Random Glucose 96 Calcium 8.5 Phosphorus 4.9 Magnesium 2.0 Active Medications Albuterol Sulfate (Ventolin 0.083% Nebulizer Soln -) 1 amp NEB Q6H PRN PRN Reason: SHORT OF BREATH/WHEEZING Budesonide/Formoterol Fumarate (Symbicort 160/4.5mcg -) 2 puff IH BID [facility] Last Admin: 06/14/19 10:33 Dose: 2 puff Chlorthalidone (Hygroton -) 25 mg PO DAILY [facility] Last Admin: 06/14/19 10:30 Dose: Not Given Dexamethasone Sodium Phosphate (Decadron Injection -) 4 mg IVPUSH ONCE PRN PRN Reason: NAUSEA AND/OR VOMITING Diazepam (Valium Injection -) 5 mg IVPUSH Q8H PRN PRN Reason: BACK PAIN Last Admin: 06/14/19 00:52 Dose: 5 mg Diphenhydramine HCl (Benadryl Injection -) 12.5 mg IVPUSH ONCE PRN PRN Reason: FOR ITCHING Docusate Sodium (Colace -) 100 mg PO BID PRN PRN Reason: CONSTIPATION Fentanyl (Sublimaze Injection -) 50 mcg IVPUSH [id number] PRN PRN Reason: PAIN-PACU ORDER X 4 DOSES ONLY Hydromorphone HCl (Hydromorphone 10 Mg/50 Ml-Ns) 10 mg CRANK HAND CRANK HAND [facility]; Protocol Stop: 06/14/19 15:59 Last Admin: 06/13/19 17:37 Dose: 10 mg Lactated Ringer's (Lactated Ringers Solution) 1,000 mls @ 125 mls/hr IV ASDIR [facility] Last Admin: 06/13/19 17:37 Dose: 315 mls Ondansetron HCl (Zofran Injection) 4 mg IVPUSH Q6H PRN PRN Reason: NAUSEA AND/OR VOMITING Last Admin: 06/14/19 00:43 Dose: 4 mg ASSESSMENT/PLAN: Patient is a 54 year old female with PMH of HTN, asthma who is POD #1 removal L4 -L5 hardware, inspection of fusion mass, L3 laminectomy, L3-L4 PLIF, L3-L5 posterior instrumental spinal fusion for L3-L4 spondylolisthesis with Dr. Rangel. Patient was admitted to ICU for post op monitoring. Neuro -Awake, alert and oriented x3 -moving all 4 limbs spontaneously -pain Ctrl w/ intra op paraspinal block, CRANK HAND per anaesthesia. -NO NSAIDS per Dr. Rangel -OOB, PT Urinary -D/c perez once OOB/ambulating ID -post op ancef x3 doses GI -Advance to clear liquid diet Prophylaxis -mechanical DVT prophy w/ SCDs per Dr. Rangel Dispo -Pt is stable to be transferred to med-surg Visit type - Emergency Visit Emergency Visit: No - New Patient This patient is new to me today: Yes Date on this admission: 06/14/19 - Critical Care Critical Care patient: Yes Total Critical Care Time (in minutes): 45 Critical Care Statement: The care of this patient involved high complexity decision making to prevent further life threatening deterioration of the patient 's condition and/or to evaluate & treat vital organ system(s) failure or risk of failure. ATTENDING PHYSICIAN STATEMENT I saw and evaluated the patient. I reviewed the resident's note and discussed the case with the resident. I agree with the resident's findings and plan as documented. SUBJECTIVE: OBJECTIVE: ASSESSMENT AND PLAN:
[2019-06-14] MEDS ORDERED: ONDANSETRON 4 MG/2 ML VIAL IVPUSH PRN (17:36)
[2019-06-14] MEDS ORDERED: diazePAM CARPU-JECT 10 MG/2 ML DISP.SYRIN IVPUSH PRN (17:36)
[2019-06-14] MEDS ORDERED: DEXAMETHASONE SOD PHOSPHATE 4 MG/1 ML VIAL IVPUSH PRN (17:36)
--- NOTE | 2019-06-14 18:38 | PN ---
HC Provider Note Provider Note: Anesthesia Post Op Note Pt s/p GA for lumbar PLIF Pt awake alert denies n/v tolerating po pain managed well on BAR WELDER - will continue VSS no apparent anesthesia complications Mervat Dickson.
[2019-06-14] MEDS: oxyCODONE HCL 5 MG TABLET PO PRN (20:18)
[2019-06-15] MEDS: diazePAM 5 MG TABLET PO PRN ×2 (01:44→21:42)
[2019-06-15] MEDS: oxyCODONE HCL 5 MG TABLET PO PRN ×2 (01:47→21:42)
[2019-06-15] MEDS: BUDESONIDE/FORMETEROL FUMARATE 160/4.5 mcg INHALER IH SCH ×3 (01:49→21:43)
[2019-06-15 08:37] LABS: BASO % 0.3 % (0-2.0); EOS % 0.4 % (0-4.5); HEMATOCRIT 30.2 % (32.4-45.2); HEMOGLOBIN 9.9 GM/dL (10.7-15.3); LYMPH % 18.6 % (8-40); MCH 26.3 pg (25.7-33.7); MCHC 32.9 g/dl (32.0-36.0); MEAN CELL VOLUME 79.8 fl (80-96); MEAN PLT VOLUME 8.5 fl (7.5-11.1); MONO % 9.1 % (3.8-10.2); NEUT % 71.6 % (42.8-82.8); PLATELET COUNT 236 K/MM3 (134-434); RBC 3.78 M/mm3 (3.60-5.2)
[2019-06-15 08:55] LABS: BLOOD UREA NITROGEN 8.7 mg/dL (7-18); CALCIUM 9.1 mg/dL (8.5-10.1); CREATININE 1.2 mg/dL (0.55-1.3); MAGNESIUM 1.9 mg/dL (1.8-2.4); POTASSIUM 3.1 mmol/L (3.5-5.1)
[2019-06-15] MEDS ORDERED: POTASSIUM CHLORIDE TABS 20 MEQ TABLET.ER (FP) PO ONE (09:05)
--- NOTE | 2019-06-15 09:09 | PN ---
Physical Exam: SUBJECTIVE: Patient seen and examined at the bedside. Overnight fever noted. Patient stated that she had some back discomfort and leg discomfort. Endorsed good appetite. Denied cp, sob, abd pain, n/v, fever, chills, headaches, dizziness, lightheadedness. OBJECTIVE: Vital Signs Period Temp Pulse Resp BP Sys/Chun Pulse Ox Last 24 Hr 97.8 F-100.8 F 84-106 17-20 120-134/60-78 95 GENERAL: The patient is awake, alert, and fully oriented, in no acute distress. HEAD: Normal with no signs of trauma. EYES: PERRL, extraocular movements intact, sclera anicteric, conjunctiva clear. ENT: Oropharynx clear without exudates, moist mucous membranes. LUNGS: Breath sounds equal, clear to auscultation bilaterally, no wheezes, no crackles, no accessory muscle use. HEART: Regular rate and rhythm, S1, S2 without murmur, rub. ABDOMEN: Soft, obese, nontender, nondistended, normoactive bowel sounds, no guarding, no rebound, no masses. EXTREMITIES: 2+ pulses, warm, well-perfused, no edema. NEUROLOGICAL: Cranial nerves II through XII grossly intact. Lower extremities with decreased strength likely secondary to pain. 4/5 on the RLE more distally. Decreased sensation to gross touch on the R leg not in any dermatomal pattern. PSYCH: Normal mood, normal affect. SKIN: Warm, dry, normal turgor, no rashes or lesions noted. Laboratory Results - last 24 hr 06/15/19 06/15/19 07:22 07:22 WBC 13.0 H RBC 3.78 Hgb 9.9 L Hct 30.2 L MCV 79.8 L MCH 26.3 MCHC 32.9 RDW 16.0 H Plt Count 236 MPV 8.5 Absolute Neuts (auto) 9.3 H Neutrophils % 71.6 Lymphocytes % 18.6 Monocytes % 9.1 Eosinophils % 0.4 Basophils % 0.3 Nucleated RBC % 0 Sodium 137 Potassium 3.1 L Chloride 99 Carbon Dioxide 31 Anion Gap 7 L BUN 8.7 Creatinine 1.2 Est GFR (CKD-EPI)AfAm 58.92 Est GFR (CKD-EPI)NonAf 50.84 Random Glucose 102 Calcium 9.1 Magnesium 1.9 Active Medications Generic Name Dose Route Start Last Admin Trade Name Freq PRN Reason Stop Dose Admin Albuterol Sulfate 1 amp 06/14/19 17:36 Ventolin 0.083% Nebulizer Soln - NEB Q6H PRN SHORT OF BREATH/WHEEZING Budesonide/Formoterol Fumarate 2 puff 06/14/19 22:00 06/15/19 01:49 Symbicort 160/4.5mcg - IH 2 puff BID [facility] Administration Chlorthalidone 25 mg 06/15/19 10:00 Hygroton - PO DAILY [facility] Dexamethasone Sodium Phosphate 4 mg 06/14/19 17:36 Decadron Injection - IVPUSH ONCE PRN NAUSEA AND/OR VOMITING Diazepam 5 mg 06/14/19 18:20 06/15/19 01:44 Valium - PO 5 mg Q8H PRN Administration BACK PAIN Diphenhydramine HCl 12.5 mg 06/14/19 17:36 Benadryl Injection - IVPUSH ONCE PRN FOR ITCHING Docusate Sodium 100 mg 06/14/19 17:36 Colace - PO BID PRN CONSTIPATION Lactated Ringer's 1,000 mls @ 125 mls/hr 06/14/19 17:36 Lactated Ringers Solution IV ASDIR [facility] Ondansetron HCl 4 mg 06/14/19 17:36 Zofran Injection IVPUSH Q6H PRN NAUSEA AND/OR VOMITING Oxycodone HCl 5 mg 06/14/19 17:24 Roxicodone - PO Q6H PRN PAIN LEVEL 4 - 6 Oxycodone HCl 10 mg 06/14/19 17:24 06/15/19 01:47 Roxicodone - PO 10 mg Q6H PRN Administration PAIN LEVEL 7 - 10 Polyethylene Glycol 17 gm 06/15/19 10:00 Miralax (For Daily Use) - PO DAILY [facility] Potassium Chloride 40 meq 06/15/19 09:05 K-Dur - PO 06/15/19 09:06 ONCE ONE Senna 1 tab 06/15/19 22:00 Senna - PO [facility] ASSESSMENT/PLAN: Elizabeth Castaneda is a 54 year old female with a past medical history of HTN, asthma presenting POD #1 s/p removal L4-L5 hardware, inspection of fusion mass, L3 laminectomy, L3-L4 PLIF, L3-L5 posterior instrumental spinal fusion w/ Dr. Shein. S/p laminectomy and spinal fusin - s/p exparel block intra operatively - oxycodone PO for pain - avoid NSAIDs - weight bearing as tolerated b/l LE - further recommendations as per surgery and anesthesia - abx: post- op 3 x doses ancef given, 1g vanc - OOB as tolerated - PT, walked 55ft with rolling walker - Surgical recs: No bending, lifting (>5 lbs), or twisting for 9-12 months HTN - hold home chlorthalidone 25 mg daily while patient on fluids - blood pressure well controlled, continue to monitor and restart home meds as clinically appropriate Asthma - incentive spirometer q15min - ventolin prn PPX - DVT: SCDs, avoid chemical AC post-operatively FEN - LR @125cc/hr, can d/c when patient tolerating full diet - continue to monitor electrolytes and replete as necessary, hypokalemia noted and repleted - sodium controlled diet Dispo - continue to monitor on Med-surg Visit type - Emergency Visit Emergency Visit: Yes ED Registration Date: 06/13/19 Care time: The patient presented to the Emergency Department on the above date and was hospitalized for further evaluation of their emergent condition. - New Patient This patient is new to me today: Yes Date on this admission: 06/15/19 - Critical Care Critical Care patient: No
--- NOTE | 2019-06-15 09:20 | PN ---
Teaching Attending Note Name of Resident: Edmund Carreon ATTENDING PHYSICIAN STATEMENT I saw and evaluated the patient. I reviewed the resident's note and discussed the case with the resident. I agree with the resident's findings and plan as documented. SUBJECTIVE: Patient is feeling better with no acute distress. OBJECTIVE: Vital Signs Temperature 100 F H 06/15/19 02:15 Pulse Rate 106 H 06/15/19 02:15 Respiratory Rate 20 06/15/19 02:15 Blood Pressure 124/78 06/15/19 02:15 O2 Sat by Pulse Oximetry (%) 95 06/14/19 19:22 GENERAL: The patient is awake, alert, and fully oriented, in no acute distress. HEAD: Normal with no signs of trauma. EYES: PERRL, extraocular movements intact, sclera anicteric, conjunctiva clear. ENT: Ears normal, oropharynx clear without exudates, moist mucous membranes. NECK: Trachea midline, full range of motion, supple. LUNGS: Breath sounds equal, clear to auscultation bilaterally, no wheezes, no crackles, no accessory muscle use. HEART: Regular rate and rhythm, S1, S2 without murmur, rub or gallop. ABDOMEN: Soft, nontender, nondistended, normoactive bowel sounds, no guarding, no rebound, no hepatosplenomegaly, no masses. EXTREMITIES: 2+ pulses, warm, well-perfused, no edema. NEUROLOGICAL: Cranial nerves II through XII grossly intact. Normal speech, gait not observed. PSYCH: Normal mood, normal affect. SKIN: Warm, dry, normal turgor, no rashes or lesions noted CBCD WBC 13.0 K/mm3 (4.0-10.0) H 06/15/19 07:22 RBC 3.78 M/mm3 (3.60-5.2) 06/15/19 07:22 Hgb 9.9 GM/dL (10.7-15.3) L 06/15/19 07:22 Hct 30.2 % (32.4-45.2) L 06/15/19 07:22 MCV 79.8 fl (80-96) L 06/15/19 07:22 MCHC 32.9 g/dl (32.0-36.0) 06/15/19 07:22 RDW 16.0 % (11.6-15.6) H 06/15/19 07:22 Plt Count 236 K/MM3 (134-434) 06/15/19 07:22 MPV 8.5 fl (7.5-11.1) 06/15/19 07:22 CMP Sodium 137 mmol/L (136-145) 06/15/19 07:22 Potassium 3.1 mmol/L (3.5-5.1) L 06/15/19 07:22 Chloride 99 mmol/L (98-107) 06/15/19 07:22 Carbon Dioxide 31 mmol/L (21-32) 06/15/19 07:22 Anion Gap 7 MMOL/L (8-16) L 06/15/19 07:22 BUN 8.7 mg/dL (7-18) 06/15/19 07:22 Creatinine 1.2 mg/dL (0.55-1.3) 06/15/19 07:22 Random Glucose 102 mg/dL (74-106) 06/15/19 07:22 Calcium 9.1 mg/dL (8.5-10.1) 06/15/19 07:22 Current Medications Generic Name Dose Route Start Last Admin Trade Name Freq PRN Reason Stop Dose Admin Albuterol Sulfate 1 amp 06/14/19 17:36 Ventolin 0.083% Nebulizer Soln - NEB Q6H PRN SHORT OF BREATH/WHEEZING Budesonide/Formoterol Fumarate 2 puff 06/14/19 22:00 06/15/19 01:49 Symbicort 160/4.5mcg - IH 2 puff BID AMANDO Administration Chlorthalidone 25 mg 06/15/19 10:00 Hygroton - PO DAILY AMANDO Dexamethasone Sodium Phosphate 4 mg 06/14/19 17:36 Decadron Injection - IVPUSH ONCE PRN NAUSEA AND/OR VOMITING Diazepam 5 mg 06/14/19 18:20 06/15/19 01:44 Valium - PO 5 mg Q8H PRN Administration BACK PAIN Diphenhydramine HCl 12.5 mg 06/14/19 17:36 Benadryl Injection - IVPUSH ONCE PRN FOR ITCHING Docusate Sodium 100 mg 06/14/19 17:36 Colace - PO BID PRN CONSTIPATION Lactated Ringer's 1,000 mls @ 125 mls/hr 02/11/20 17:36 Lactated Ringers Solution IV ASDIR [facility] Potassium Chloride 10 meq in 100 mls @ 100 mls/hr 06/15/19 09:15 Potassium Chloride 10 Meq Premix Ivpb - IVPB 06/15/19 11:14 Q60M AMANDO Ondansetron HCl 4 mg 06/14/19 17:36 Zofran Injection IVPUSH Q6H PRN NAUSEA AND/OR VOMITING Oxycodone HCl 5 mg 06/14/19 17:24 Roxicodone - PO Q6H PRN PAIN LEVEL 4 - 6 Oxycodone HCl 10 mg 06/14/19 17:24 06/15/19 01:47 Roxicodone - PO 10 mg Q6H PRN Administration PAIN LEVEL 7 - 10 Polyethylene Glycol 17 gm 06/15/19 10:00 Miralax (For Daily Use) - PO DAILY AMANDO Senna 1 tab 06/15/19 22:00 Senna - PO HS [facility] Home Medications Medication Instructions Recorded Chlorthalidone 25 mg PO DAILY 06/09/19 Fluticasone Propion/Salmeterol 1 each IH BID 06/09/19 [Wixela 500-50 Inhub] Garlic 1 each PO DAILY 06/13/19 Multivitamin [Poly-Vitamin] 1 each PO DAILY 06/13/19 Baclofen 10 mg PO DAILY 06/14/19 Cyclobenzaprine HCl [Flexeril 10 10 mg PO DAILY 06/14/19 mg] Oxycodone HCl/Acetaminophen 1 each PO TID 06/14/19 [Percocet 10-325 mg Tablet] ASSESSMENT AND PLAN: Patient is a 54yof with PMhx of Asthma, HTN, and chronic back pain s/p back surgery by . # POD day #2 after lumbar spine sx # h/o HTN # h/o Asthma. 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 - perez out - leukocytosis is likely due to steroids given during OR - PT eval - inhalers - SCDs. - heparin per surgery - replete K - clears dc once cleared by ortho.
[2019-06-15] MEDS ORDERED: PT OWN MED DRAWER 7, Y5N ONE ×2 (10:25→11:41)
[2019-06-15] MEDS: KCL 10 MEQ IVPB 10 MEQ/100 ML INFUS.BAG IVPB SCH ×2 (10:31→13:24)
[2019-06-15] MEDS: LACTATED RINGERS SOLUTION 1,000 ML IV SCH ×2 (10:31→17:44)
[2019-06-15] MEDS: DOCUSATE SODIUM 100 MG CAPSULE (FP) PO PRN ×2 (10:32→21:42)
[2019-06-15] MEDS: POLYETHYLENE GLYCOL 3350 119 GM BTL PO SCH (10:36)
[2019-06-15] MEDS: CHLORTHALIDONE 25 MG TABLET PO SCH (11:45)
--- NOTE | 2019-06-15 17:30 | PATH ---
Surgical Pathology Report Patient Name: CONNOR FATIMA Med. Rec. #: [id number] /Age/Gender: 1965 (Age: 54) / F Account: [id number] Location: [facility] MED/SURG Taken: 06/13/2019 Received: 06/14/2019 Reported: 06/15/2019 Physicians: Mo Rangel M.D. Specimen(s) Received A: DISC L3-L4 B: HARDWARE L4/5 Clinical History Lumbar spinal stenosis Final Diagnosis A. L3-L4 DISC, DISCECTOMY: SCANTY BONE AND FRAGMENTS OF CARTILAGE TISSUE WITH FOCAL DEGENERATIVE CHANGE. B. REMOVED HARDWARE: CONSISTENT WITH HARDWARE. GROSS EXAMINATION ONLY. Electronically Signed Grzegorz Garber M.D. Gross Description A. Received in formalin labeled "L3/4 disc," is a 3.0 x 2.3 x 0.3 cm aggregate of watters fragments of fibrocartilaginous tissue. A resources representative portion is submitted in one cassette. B. Received fresh labeled "removed hardware," are 2 dorman metallic rods averaging 3.5 cm in length. Also received within the same container are 8 metallic screws ranging from 0.4-5.0 cm in length. No soft tissue is present. No sections are submitted, gross only. DL/06/14/2019 saudi06/14/2019
[2019-06-15] MEDS: SENNOSIDES 8.6MG TABLET (FP) PO SCH (21:42)
--- NOTE | 2019-06-16 06:23 | PN ---
Physical Exam: SUBJECTIVE: Patient seen and examined at the bedside. States she is feeling well. Endorses that she has some weakness in her R leg with pain but has been ambulating well by herself and with physical therapy. Has not had a bowel movement but has been passing flatus. Denies cp, sob, abd pain, n/v, headaches, dizziness, lightheadedness. OBJECTIVE: Vital Signs Period Temp Pulse Resp BP Sys/Chun Pulse Ox Last 24 Hr 98.4 F-100.8 F 96-114 20-20 119-143/65-83 94 GENERAL: The patient is awake, alert, and fully oriented, in no acute distress. HEAD: Normal with no signs of trauma. EYES: PERRL, extraocular movements intact, sclera anicteric, conjunctiva clear. ENT: Oropharynx clear without exudates, moist mucous membranes. LUNGS: Breath sounds equal, clear to auscultation bilaterally, no wheezes, no crackles, no accessory muscle use. HEART: Regular rate and rhythm, S1, S2 without murmur, rub. ABDOMEN: Soft, obese, nontender, nondistended, normoactive bowel sounds, no guarding, no rebound, no masses. EXTREMITIES: 2+ pulses, warm, well-perfused, no edema. NEUROLOGICAL: Cranial nerves II through XII grossly intact. 4/5 on the RLE proximally limited due to pain. Decreased sensation to gross touch on the R leg not in any dermatomal pattern. PSYCH: Normal mood, normal affect. SKIN: Warm, dry, normal turgor, no rashes or lesions noted. Laboratory Results - last 24 hr 06/15/19 06/15/19 07:22 07:22 WBC 13.0 H RBC 3.78 Hgb 9.9 L Hct 30.2 L MCV 79.8 L MCH 26.3 MCHC 32.9 RDW 16.0 H Plt Count 236 MPV 8.5 Absolute Neuts (auto) 9.3 H Neutrophils % 71.6 Lymphocytes % 18.6 Monocytes % 9.1 Eosinophils % 0.4 Basophils % 0.3 Nucleated RBC % 0 Sodium 137 Potassium 3.1 L Chloride 99 Carbon Dioxide 31 Anion Gap 7 L BUN 8.7 Creatinine 1.2 Est GFR (CKD-EPI)AfAm 58.92 Est GFR (CKD-EPI)NonAf 50.84 Random Glucose 102 Calcium 9.1 Magnesium 1.9 Active Medications Generic Name Dose Route Start Last Admin Trade Name Freq PRN Reason Stop Dose Admin Albuterol Sulfate 1 amp 06/14/19 17:36 Ventolin 0.083% Nebulizer Soln - NEB Q6H PRN SHORT OF BREATH/WHEEZING Budesonide/Formoterol Fumarate 2 puff 06/14/19 22:00 06/15/19 21:43 Symbicort 160/4.5mcg - IH 2 puff BID AMANDO Administration Chlorthalidone 25 mg 06/15/19 10:00 06/15/19 11:45 Hygroton - PO 25 mg DAILY AMANDO Administration Dexamethasone Sodium Phosphate 4 mg 06/14/19 17:36 Decadron Injection - IVPUSH ONCE PRN NAUSEA AND/OR VOMITING Diazepam 5 mg 06/14/19 18:20 06/15/19 21:42 Valium - PO 5 mg Q8H PRN Administration BACK PAIN Diphenhydramine HCl 12.5 mg 06/14/19 17:36 Benadryl Injection - IVPUSH ONCE PRN FOR ITCHING Docusate Sodium 100 mg 06/14/19 17:36 06/15/19 21:42 Colace - PO 100 mg BID PRN Administration CONSTIPATION Ondansetron HCl 4 mg 06/14/19 17:36 Zofran Injection IVPUSH Q6H PRN NAUSEA AND/OR VOMITING Oxycodone HCl 5 mg 06/14/19 17:24 Roxicodone - PO Q6H PRN PAIN LEVEL 4 - 6 Oxycodone HCl 10 mg 06/14/19 17:24 06/15/19 21:42 Roxicodone - PO 10 mg Q6H PRN Administration PAIN LEVEL 7 - 10 Polyethylene Glycol 17 gm 06/15/19 10:00 06/15/19 10:36 Miralax (For Daily Use) - PO 17 grams DAILY AMANDO Administration Senna 1 tab 06/15/19 22:00 06/15/19 21:42 Senna - PO 1 tab HS AMANDO Administration ASSESSMENT/PLAN: Elizabeth Castaneda is a 54 year old female with a past medical history of HTN, asthma presenting POD #3 s/p removal L4-L5 hardware, inspection of fusion mass, L3 laminectomy, L3-L4 PLIF, L3-L5 posterior instrumental spinal fusion w/ Dr. Shein. S/p laminectomy and spinal fusion - s/p exparel block intra operatively - oxycodone PO for pain, will restart home regimen upon discharge - avoid NSAIDs - weight bearing as tolerated b/l LE - further recommendations as per surgery and anesthesia - abx: post- op 3 x doses ancef given, 1g vanc - OOB as tolerated - PT, walked 150ft with rolling walker - Surgical recs: No bending, lifting (>5 lbs), or twisting for 9-12 months HTN - chlorthalidone 25 mg daily Asthma - incentive spirometer q15min - ventolin prn PPX - DVT: SCDs, avoid chemical AC post-operatively FEN - no standing fluids, encouage PO intake - continue to monitor electrolytes and replete as necessary - sodium controlled diet Dispo - continue to monitor on Med-surg - to go to SNF for STR, Adira Visit type - Emergency Visit Emergency Visit: Yes ED Registration Date: 06/13/19 Care time: The patient presented to the Emergency Department on the above date and was hospitalized for further evaluation of their emergent condition. - New Patient This patient is new to me today: No - Critical Care Critical Care patient: No
[2019-06-16] MEDS: oxyCODONE HCL 5 MG TABLET PO PRN ×2 (07:12→22:00)
[2019-06-16 08:19] LABS: BASO % 0.4 % (0-2.0); HEMATOCRIT 28.5 % (32.4-45.2); HEMOGLOBIN 9.5 GM/dL (10.7-15.3); LYMPH % 20.5 % (8-40); MCH 26.4 pg (25.7-33.7); MCHC 33.2 g/dl (32.0-36.0); MEAN CELL VOLUME 79.4 fl (80-96); MEAN PLT VOLUME 8.2 fl (7.5-11.1); MONO % 7.6 % (3.8-10.2); NEUT % 70.5 % (42.8-82.8); PLATELET COUNT 233 K/MM3 (134-434); RBC 3.59 M/mm3 (3.60-5.2); RDW 16.2 % (11.6-15.6); WHITE BLOOD COUNT 10.6 K/mm3 (4.0-10.0)
[2019-06-16] MEDS ORDERED: PT OWN MED DRAWER 7, Y5N ONE ×2 (08:47→18:56)
[2019-06-16 09:11] LABS: BLOOD UREA NITROGEN 9.6 mg/dL (7-18); CALCIUM 8.9 mg/dL (8.5-10.1); POTASSIUM 3.5 mmol/L (3.5-5.1)
[2019-06-16] MEDS: CHLORTHALIDONE 25 MG TABLET PO SCH (11:01)
[2019-06-16] MEDS: POLYETHYLENE GLYCOL 3350 119 GM BTL PO SCH (11:39)
[2019-06-16] MEDS: BUDESONIDE/FORMETEROL FUMARATE 160/4.5 mcg INHALER IH SCH ×2 (11:48→22:48)
--- NOTE | 2019-06-16 19:35 | PN ---
Progress Note (short form) - Note Progress Note: POD#3 Comfortable C/O incisional pain mild Original pain gone weakness l thigh Mobilized and walked in the hallway Vitals all stable CVS Stable RESP Clear ABD Soft not distended passing flatus Neuro All motors LE 5/5 Wound Slight serosang drainage New dressing applied ASSESS Doing well PLAN D/C home tomorrow See in office on THURSDAY Pain MX PT mobilize FWBAT use corsette
--- NOTE | 2019-06-16 20:55 | PN ---
Teaching Attending Note Name of Resident: Edmund Carreon ATTENDING PHYSICIAN STATEMENT I saw and evaluated the patient. I reviewed the resident's note and discussed the case with the resident. I agree with the resident's findings and plan as documented. SUBJECTIVE: Patient is comfortable with no acute distress. pain is better. improving. Vital Signs Temperature 99.5 F 06/16/19 17:31 Pulse Rate 106 H 06/16/19 17:31 Respiratory Rate 20 06/16/19 17:31 Blood Pressure 121/74 06/16/19 17:31 O2 Sat by Pulse Oximetry (%) 94 L 06/15/19 09:00 GENERAL: The patient is awake, alert, and fully oriented, in no acute distress. HEAD: Normal with no signs of trauma. EYES: PERRL, extraocular movements intact, sclera anicteric, conjunctiva clear. ENT: Ears normal, oropharynx clear without exudates, moist mucous membranes. NECK: Trachea midline, full range of motion, supple. LUNGS: Breath sounds equal, clear to auscultation bilaterally, no wheezes, no crackles, no accessory muscle use. HEART: tachycardic , S1, S2 without murmur, rub or gallop. ABDOMEN: Soft, nontender, nondistended, normoactive bowel sounds, no guarding, no rebound, no hepatosplenomegaly, no masses. EXTREMITIES: 2+ pulses, warm, well-perfused, no edema. NEUROLOGICAL: Cranial nerves II through XII grossly intact. Normal speech, gait not observed. PSYCH: Normal mood, normal affect. SKIN: Warm, dry, normal turgor, multiple tattoos. CBCD WBC 10.6 K/mm3 (4.0-10.0) H 06/16/19 07:00 RBC 3.59 M/mm3 (3.60-5.2) L 06/16/19 07:00 Hgb 9.5 GM/dL (10.7-15.3) L 06/16/19 07:00 Hct 28.5 % (32.4-45.2) L 06/16/19 07:00 MCV 79.4 fl (80-96) L 06/16/19 07:00 MCHC 33.2 g/dl (32.0-36.0) 06/16/19 07:00 RDW 16.2 % (11.6-15.6) H 06/16/19 07:00 Plt Count 233 K/MM3 (134-434) 06/16/19 07:00 MPV 8.2 fl (7.5-11.1) 06/16/19 07:00 CMP Sodium 139 mmol/L (136-145) 06/16/19 07:00 Potassium 3.5 mmol/L (3.5-5.1) 06/16/19 07:00 Chloride 103 mmol/L (98-107) 06/16/19 07:00 Carbon Dioxide 28 mmol/L (21-32) 06/16/19 07:00 Anion Gap 8 MMOL/L (8-16) 06/16/19 07:00 BUN 9.6 mg/dL (7-18) 06/16/19 07:00 Creatinine 1.0 mg/dL (0.55-1.3) 06/16/19 07:00 Random Glucose 102 mg/dL (74-106) 06/16/19 07:00 Calcium 8.9 mg/dL (8.5-10.1) 06/16/19 07:00 Current Medications Generic Name Dose Route Start Last Admin Trade Name Freq PRN Reason Stop Dose Admin Albuterol Sulfate 1 amp 06/14/19 17:36 Ventolin 0.083% Nebulizer Soln - NEB Q6H PRN SHORT OF BREATH/WHEEZING Budesonide/Formoterol Fumarate 2 puff 06/14/19 22:00 06/16/19 11:48 Symbicort 160/4.5mcg - IH 2 puff BID AMANDO Administration Chlorthalidone 25 mg 06/15/19 10:00 06/16/19 11:01 Hygroton - PO Not Given DAILY AMANDO Dexamethasone Sodium Phosphate 4 mg 06/14/19 17:36 Decadron Injection - IVPUSH ONCE PRN NAUSEA AND/OR VOMITING Diazepam 5 mg 06/14/19 18:20 06/15/19 21:42 Valium - PO 5 mg Q8H PRN Administration BACK PAIN Diphenhydramine HCl 12.5 mg 06/14/19 17:36 Benadryl Injection - IVPUSH ONCE PRN FOR ITCHING Docusate Sodium 100 mg 06/14/19 17:36 06/15/19 21:42 Colace - PO 100 mg BID PRN Administration CONSTIPATION Ondansetron HCl 4 mg 06/14/19 17:36 Zofran Injection IVPUSH Q6H PRN NAUSEA AND/OR VOMITING Oxycodone HCl 5 mg 06/14/19 17:24 06/16/19 07:12 Roxicodone - PO 5 mg Q6H PRN Administration PAIN LEVEL 4 - 6 Oxycodone HCl 10 mg 06/14/19 17:24 06/15/19 21:42 Roxicodone - PO 10 mg Q6H PRN Administration PAIN LEVEL 7 - 10 Polyethylene Glycol 17 gm 06/15/19 10:00 06/16/19 11:39 Miralax (For Daily Use) - PO Not Given DAILY AMANDO Senna 1 tab 06/15/19 22:00 06/15/19 21:42 Senna - PO 1 tab HS AMANDO Administration Home Medications Medication Instructions Recorded Chlorthalidone 25 mg PO DAILY 06/09/19 Fluticasone Propion/Salmeterol 1 each IH BID 06/09/19 [Wixela 500-50 Inhub] Garlic 1 each PO DAILY 06/13/19 Multivitamin [Poly-Vitamin] 1 each PO DAILY 06/13/19 Baclofen 10 mg PO DAILY 06/14/19 Cyclobenzaprine HCl [Flexeril 10 10 mg PO DAILY 06/14/19 mg] Oxycodone HCl/Acetaminophen 1 each PO TID 06/14/19 [Percocet 10-325 mg Tablet] ASSESSMENT AND PLAN: Patient is a 54 yof with Pmhx of Asthma, HTN, and chronic back pain s/p lumbar spine sx # POD day 3 after lumbar spine sx # h/o HTN # h/o Asthma. -continue pain meds. -PT -continue inhalers -pain control, muscle relaxant. -waiting for ortho to change the dressing continue to monitor. DVT px: SCds
[2019-06-16] MEDS: SENNOSIDES 8.6MG TABLET (FP) PO SCH (22:48)
[2019-06-17 08:41] LABS: BASO % 0.6 % (0-2.0); EOS % 3.4 % (0-4.5); HEMATOCRIT 29.1 % (32.4-45.2); HEMOGLOBIN 9.7 GM/dL (10.7-15.3); LYMPH % 28.1 % (8-40); MCH 26.4 pg (25.7-33.7); MCHC 33.2 g/dl (32.0-36.0); MEAN CELL VOLUME 79.5 fl (80-96); MEAN PLT VOLUME 7.9 fl (7.5-11.1); NEUT % 59.9 % (42.8-82.8); PLATELET COUNT 295 K/MM3 (134-434); RBC 3.66 M/mm3 (3.60-5.2); RDW 15.9 % (11.6-15.6); WHITE BLOOD COUNT 9.7 K/mm3 (4.0-10.0)
[2019-06-17 09:07] LABS: BLOOD UREA NITROGEN 13.2 mg/dL (7-18); CALCIUM 9.4 mg/dL (8.5-10.1); CREATININE 1.2 mg/dL (0.55-1.3); MAGNESIUM 2.2 mg/dL (1.8-2.4); POTASSIUM 3.7 mmol/L (3.5-5.1)
[2019-06-17] MEDS ORDERED: PT OWN MED DRAWER 7, Y5N ONE ×2 (09:48→10:12)
[2019-06-17] MEDS: CHLORTHALIDONE 25 MG TABLET PO SCH (10:17)
[2019-06-17] MEDS: BUDESONIDE/FORMETEROL FUMARATE 160/4.5 mcg INHALER IH SCH (10:17)
[2019-06-17] MEDS: POLYETHYLENE GLYCOL 3350 119 GM BTL PO SCH (10:18)
[2019-06-17] MEDS: DOCUSATE SODIUM 100 MG CAPSULE (FP) PO PRN (10:18)
--- NOTE | 2019-06-17 14:18 | DS ---
Physical Exam: SUBJECTIVE: Patient seen and examined at the bedside. Stated she is doing better and has been working well with physical therapy. Noted that her pain is well controlled and her dressings were changed yesterday with Dr. Rangel. Denied cp, sob, abd pain, n/v/c/d, fever, chills, headaches, dizziness, lightheadedness. OBJECTIVE: Vital Signs Period Temp Pulse Resp BP Sys/Chun Pulse Ox Last 24 Hr 98.4 F-99.5 F 92-106 20-20 111-122/56-81 99 PHYSICAL EXAM GENERAL: The patient is awake, alert, and fully oriented, in no acute distress. HEAD: Normal with no signs of trauma. EYES: PERRL, extraocular movements intact, sclera anicteric, conjunctiva clear. ENT: Oropharynx clear without exudates, moist mucous membranes. LUNGS: Breath sounds equal, clear to auscultation bilaterally, no wheezes, no crackles, no accessory muscle use. HEART: Regular rate and rhythm, S1, S2 without murmur, rub. ABDOMEN: Soft, obese, nontender, nondistended, normoactive bowel sounds, no guarding, no rebound, no masses. EXTREMITIES: 2+ pulses, warm, well-perfused, no edema. NEUROLOGICAL: Cranial nerves II through XII grossly intact. 4/5 on the RLE proximally limited due to pain. Decreased sensation to gross touch on the R leg not in any dermatomal pattern. PSYCH: Normal mood, normal affect. SKIN: Warm, dry, normal turgor, no rashes or lesions noted. LABS Laboratory Results - last 24 hr 06/17/19 06/17/19 08:00 08:00 WBC 9.7 RBC 3.66 Hgb 9.7 L Hct 29.1 L MCV 79.5 L MCH 26.4 MCHC 33.2 RDW 15.9 H Plt Count 295 D MPV 7.9 Absolute Neuts (auto) 5.8 Neutrophils % 59.9 Lymphocytes % 28.1 D Monocytes % 8.0 Eosinophils % 3.4 D Basophils % 0.6 Nucleated RBC % 0 Sodium 138 Potassium 3.7 Chloride 101 Carbon Dioxide 30 Anion Gap 6 L BUN 13.2 Creatinine 1.2 Est GFR (CKD-EPI)AfAm 58.92 Est GFR (CKD-EPI)NonAf 50.84 Random Glucose 99 Calcium 9.4 Magnesium 2.2 HOSPITAL COURSE: Elizabeth Castaneda is a 54 year old female with a past medical history of HTN, asthma presenting POD #3 s/p removal L4-L5 hardware, inspection of fusion mass, L3 laminectomy, L3-L4 PLIF, L3-L5 posterior instrumental spinal fusion w/ Dr. Rangel. Patient's pain was well controlled on PO pain medications. Worked well with physical therapy. Surgical recs were: No bending, lifting (>5 lbs), or twisting for 9-12 months. Patient to follow up with Dr. Rangel for further managament. Is to be discharged from the hospital with rollator and to have brace at Dr. Rangel's office. Patient was discharged in stable medical condition. Date of Admission:06/13/19 Date of Discharge: 06/17/19 Minutes to complete discharge: 35 Discharge Summary Problems reviewed: Yes Reason For Visit: SPINAL STENOSIS LUMBAR Current Active Problems Asthma (Chronic) Fusion of lumbar spine (Chronic) Hypertension (Chronic) Condition: Stable - Instructions Diet, Activity, Other Instructions: You were admitted and underwent a spinal fusion. You received physical therapy and pain management of your back pain. You are advised to follow up with Dr. Rangel in his clinic. MEDICATIONS Please continue to take all of your home medications as prescribed. REFERRALS Please follow up with your primary care provider, within 1 week. If you do not have a primary care provider you can make an appointment with the resident's clinic for which the information is provider. Please follow up with Dr. Rangel, this Thursday06/20/2019. Please continue with home Physical Therapy. SPECIAL INSTRUCTIONS Do not use any medications such as Advil, Alleve, naproxen, or other NSAIDS. Follow up with Dr. Rangel in the clinic. No bending, lifting (>5 lbs), or twisting for 9-12 months. If you have any symptoms of chest pain, shortness of breath, dizziness, fevers, inability to ambulate, or any other general feelings of unwellness, please call 911 or go to your nearest emergency room. Referrals: [facility] [place] [Provider Group] - 1 Week Mo Rangel MD [Staff Physician] - 1 Week Disposition: HOME - Home Medications Comprehensive Discharge Medication List: Ambulatory Orders Chlorthalidone 25 mg PO DAILY 06/09/19 Fluticasone Propion/Salmeterol [Wixela 500-50 Inhub] 1 each IH BID 06/09/19 Garlic 1 each PO DAILY 06/13/19 Multivitamin [Poly-Vitamin] 1 each PO DAILY 06/13/19 Baclofen 10 mg PO DAILY 06/14/19 Cyclobenzaprine HCl [Flexeril 10 mg] 10 mg PO DAILY 06/14/19 Oxycodone HCl/Acetaminophen [Percocet 10-325 mg Tablet] 1 each PO TID 06/14/19 Miscellaneous Medical Supply [Outpatient Order] 1 each ASDIR #1 misc Miscellaneous Medical Supply [Outpatient Order] 1 each ASDIR #1 misc Walker [Ultra-Light Rollator] 1 each MC DAILY #1 each 06/17/19 Problem List - Problems (1) Asthma Code(s): J45.909 - UNSPECIFIED ASTHMA, UNCOMPLICATED (2) Fusion of lumbar spine Code(s): M43.26 - FUSION OF SPINE, LUMBAR REGION (3) Hypertension Code(s): I10 - ESSENTIAL (PRIMARY) HYPERTENSION This patient is new to me today: No Emergency Visit: Yes ED Registration Date: 06/13/19 Care time: The patient presented to the Emergency Department on the above date and was hospitalized for further evaluation of their emergent condition. Critical Care patient: No - Discharge Referral Referred to [facility] Med P.C.: No
[2019-06-17 15:25] VITALS: BP 116/72; PULSE 94; TEMP 98
--- NOTE | 2019-06-17 18:50 | PN ---
Teaching Attending Note Name of Resident: Edmund Carreon ATTENDING PHYSICIAN STATEMENT I saw and evaluated the patient. I reviewed the resident's note and discussed the case with the resident. I agree with the resident's findings and plan as documented. SUBJECTIVE: Patient is feeling better, as per ortho can be discharged home since able to ambulate Vital Signs Temperature 98.0 F 06/17/19 14:00 Pulse Rate 94 H 06/17/19 14:00 Respiratory Rate 20 06/17/19 14:00 Blood Pressure 116/72 06/17/19 14:00 O2 Sat by Pulse Oximetry (%) 99 06/17/19 09:00 GENERAL: The patient is awake, alert, and fully oriented, in no acute distress. HEAD: Normal with no signs of trauma. EYES: PERRL, extraocular movements intact, sclera anicteric, conjunctiva clear. ENT: Ears normal, oropharynx clear without exudates, moist mucous membranes. NECK: Trachea midline, full range of motion, supple. LUNGS: Breath sounds equal, clear to auscultation bilaterally, no wheezes, no crackles, no accessory muscle use. HEART: RRR, S1, S2 without murmur, rub or gallop. ABDOMEN: Soft, nontender, nondistended, normoactive bowel sounds, no guarding, no rebound, no hepatosplenomegaly, no masses. EXTREMITIES: 2+ pulses, warm, well-perfused, no edema. NEUROLOGICAL: Cranial nerves II through XII grossly intact. Normal speech, gait not observed. PSYCH: Normal mood, normal affect. SKIN: Warm, dry, normal turgor, multiple tattoos. CBCD WBC 10.6 K/mm3 (4.0-10.0) H 06/16/19 07:00 RBC 3.59 M/mm3 (3.60-5.2) L 06/16/19 07:00 Hgb 9.5 GM/dL (10.7-15.3) L 06/16/19 07:00 Hct 28.5 % (32.4-45.2) L 06/16/19 07:00 MCV 79.4 fl (80-96) L 06/16/19 07:00 MCHC 33.2 g/dl (32.0-36.0) 06/16/19 07:00 RDW 16.2 % (11.6-15.6) H 06/16/19 07:00 Plt Count 233 K/MM3 (134-434) 06/16/19 07:00 MPV 8.2 fl (7.5-11.1) 06/16/19 07:00 CMP Sodium 139 mmol/L (136-145) 06/16/19 07:00 Potassium 3.5 mmol/L (3.5-5.1) 06/16/19 07:00 Chloride 103 mmol/L (98-107) 06/16/19 07:00 Carbon Dioxide 28 mmol/L (21-32) 06/16/19 07:00 Anion Gap 8 MMOL/L (8-16) 06/16/19 07:00 BUN 9.6 mg/dL (7-18) 06/16/19 07:00 Creatinine 1.0 mg/dL (0.55-1.3) 06/16/19 07:00 Random Glucose 102 mg/dL (74-106) 06/16/19 07:00 Calcium 8.9 mg/dL (8.5-10.1) 06/16/19 07:00 Current Medications Generic Name Dose Route Start Last Admin Trade Name Freq PRN Reason Stop Dose Admin Albuterol Sulfate 1 amp 06/14/19 17:36 Ventolin 0.083% Nebulizer Soln - NEB Q6H PRN SHORT OF BREATH/WHEEZING Budesonide/Formoterol Fumarate 2 puff 06/14/19 22:00 06/16/19 11:48 Symbicort 160/4.5mcg - IH 2 puff BID AMANDO Administration Chlorthalidone 25 mg 06/15/19 10:00 06/16/19 11:01 [place] - PO Not Given DAILY AMANDO Dexamethasone Sodium Phosphate 4 mg 06/14/19 17:36 Decadron Injection - IVPUSH ONCE PRN NAUSEA AND/OR VOMITING Diazepam 5 mg 06/14/19 18:20 06/15/19 21:42 Valium - PO 5 mg Q8H PRN Administration BACK PAIN Diphenhydramine HCl 12.5 mg 06/14/19 17:36 Benadryl Injection - IVPUSH ONCE PRN FOR ITCHING Docusate Sodium 100 mg 06/14/19 17:36 06/15/19 21:42 Colace - PO 100 mg BID PRN Administration CONSTIPATION Ondansetron HCl 4 mg 06/14/19 17:36 Zofran Injection IVPUSH Q6H PRN NAUSEA AND/OR VOMITING Oxycodone HCl 5 mg 06/14/19 17:24 06/16/19 07:12 Roxicodone - PO 5 mg Q6H PRN Administration PAIN LEVEL 4 - 6 Oxycodone HCl 10 mg 06/14/19 17:24 06/15/19 21:42 Roxicodone - PO 10 mg Q6H PRN Administration PAIN LEVEL 7 - 10 Polyethylene Glycol 17 gm 06/15/19 10:00 06/16/19 11:39 Miralax (For Daily Use) - PO Not Given DAILY AMANDO Senna 1 tab 06/15/19 22:00 06/15/19 21:42 Senna - PO 1 tab HS AMANDO Administration Home Medications Medication Instructions Recorded Chlorthalidone 25 mg PO DAILY 06/09/19 Fluticasone Propion/Salmeterol 1 each IH BID 06/09/19 [Wixela 500-50 Inhub] Garlic 1 each PO DAILY 06/13/19 Multivitamin [Poly-Vitamin] 1 each PO DAILY 06/13/19 Baclofen 10 mg PO DAILY 06/14/19 Cyclobenzaprine HCl [Flexeril 10 10 mg PO DAILY 06/14/19 mg] Oxycodone HCl/Acetaminophen 1 each PO TID 06/14/19 [Percocet 10-325 mg Tablet] ASSESSMENT AND PLAN: Patient is a 54 yof with Pmhx of Asthma, HTN, and chronic back pain s/p lumbar spine sx # POD day 4 after lumbar spine sx # h/o HTN # h/o Asthma. -continue pain meds. -continue inhalers -pain control, muscle relaxant. -seen by orthoangelito to dc the patient home -dressing was changed last night -stable, going home on walker. rest of orders as per ortho; such as pain meds.
== END 2019-06-17 16:24 | disposition home or self-care (01) | DRG 304 ==
LOC: JSAMEDAYSX 07:35 → JICU 20:18 → J8W 06-14 18:07
PROVIDERS: ADMIT Orthopaedic Surgery Orthopaedic Surgery of the Spine; ATTEND Internal Medicine
PROC: 0SG00AJ Fusion of Lumbar Vertebral Joint with Interbody Fusion Device, Posterior Approach, Anterior Column, Open Approach (ICD-10-PCS; 2019-06-13)
PROC: 0QH004Z Insertion of Internal Fixation Device into Lumbar Vertebra, Open Approach (ICD-10-PCS; 2019-06-13)
PROC: 0SG1071 Fusion of 2 or more Lumbar Vertebral Joints with Autologous Tissue Substitute, Posterior Approach, Posterior Column, Open Approach (ICD-10-PCS; 2019-06-13)
PROC: 0SB20ZZ Excision of Lumbar Vertebral Disc, Open Approach (ICD-10-PCS; 2019-06-13)
PROC: 01NB0ZZ Release Lumbar Nerve, Open Approach (ICD-10-PCS; 2019-06-13)
PROC: 07DR3ZX Extraction of Iliac Bone Marrow, Percutaneous Approach, Diagnostic (ICD-10-PCS; 2019-06-13)
PROC: 4A11X4G Monitoring of Peripheral Nervous Electrical Activity, Intraoperative, External Approach (ICD-10-PCS; 2019-06-13)
PROC: 0SP004Z Removal of Internal Fixation Device from Lumbar Vertebral Joint, Open Approach (ICD-10-PCS; principal; 2019-06-13 10:00)
DX: M48.062 Spinal stenosis, lumbar region with neurogenic claudication (principal); M43.16 Spondylolisthesis, lumbar region; M54.16 Radiculopathy, lumbar region; I10 Essential (primary) hypertension; J45.909 Unspecified asthma, uncomplicated; E66.9 Obesity, unspecified; Z68.35 Body mass index [BMI] 35.0-35.9, adult
CPT/HCPCS: 36415; 80048; 83735; 84100; 85025; 85027; 86850; 86900; 86901; 88300-TC; 88304-TC; 94760; 97116-GP; 97161-GP; J0131; J1644

== ENCOUNTER 2021-03-08 05:47 | Day surgery (SDC) | payer OTHER ==
[2021-03-04 16:48] VITALS: BMI 36.4
[2021-03-08] MEDS ORDERED: BENZOIN 118 ML SPRAY.PUMP TP ONE (07:19)
[2021-03-08] MEDS ORDERED: LIDOCAINE HCL 2% (20ML MULTI-DOSE VIAL) ONE (07:19)
[2021-03-08] MEDS ORDERED: MIDAZOLAM HCL 2 MG/2 ML SINGLE DOSE VIAL ONE (07:54)
[2021-03-08] MEDS ORDERED: PROPOFOL 20 ML ONE (07:55)
[2021-03-08] MEDS ORDERED: ALBUTEROL SO4 HFA INHALER IH PRN (08:53)
[2021-03-08] MEDS ORDERED: ONDANSETRON 4 MG/2 ML VIAL IVPUSH PRN (09:17)
[2021-03-08] MEDS ORDERED: oxyCODONE HCL 5 MG TABLET PO PRN (09:17)
[2021-03-08] MEDS ORDERED: PROMETHAZINE HCL 25 MG/1 ML VIAL IVPUSH PRN (09:17)
[2021-03-08] MEDS ORDERED: LACTATED RINGERS SOLUTION 1,000 ML IV SCH (09:30)
[2021-03-08] MEDS ORDERED: PATIENT'S OWN MEDICATION (NON-FORMULARY) (Fluticasone Propion/Salmeterol [Wixela 250-50 In IH SCH (10:00)
[2021-03-08] MEDS ORDERED: CHLORTHALIDONE 25 MG TABLET PO SCH (10:00)
[2021-03-08 11:19] VITALS: BP 131/78; PULSE 72; TEMP 97.9
== END 2021-03-08 11:19 | disposition home or self-care (01) ==
LOC: FASU 05:47
PROVIDERS: ATTEND Orthopaedic Surgery Orthopaedic Surgery of the Spine
PROC: 01N50ZZ Release Median Nerve, Open Approach (ICD-10-PCS; principal; 2021-03-08 08:27)
DX: G56.01 Carpal tunnel syndrome, right upper limb (principal)
CPT/HCPCS: 94760